=== PATIENT | male | born 1980 | race African-American/Black ===

== ENCOUNTER 2016-11-21 17:33 | Emergency (ER) | payer SELFPAY ==
[~2016-11-21] VITALS: Wt 159.0 kg
[2016-11-21] MEDS ORDERED: LORAZEPAM 2 MG INJ IM STA (18:02)
--- NOTE | 2016-11-21 18:19 | ERA ---
ER Documentation Chief Complaint Date/Time DATE: 11/21/16 TIME: 18:16 Chief Complaint ALOC HPI This is a 36-year-old male who does not know how he got here. The patient states that he feels very agitated and afraid. The patient tells me that he takes Wellbutrin and Geodon but he has not taken the Geodon in 2 days. He says he takes 80 mg twice daily. The patient states that he is seen a few black gentleman laying in the other side of the room facedown and they are and tells me not to wake them up. He says he is hearing voices as well. Says he is very agitated and is got to get off the Wellbutrin because he feels like it is messing him up. Does not have any physical complaints of pain. Patient says that he uses drugs in does a lot of heroin by snorting it. ROS All systems reviewed and are negative except as per history of present illness. Medications Home Meds Reported Medications Zolpidem Tartrate* (Zolpidem Tartrate*) 10 Mg Tablet, 10 MG PO QHS Y for INSOMNIA, #30 TAB 11/21/16 Ziprasidone* (Ziprasidone*) 80 Mg Capsule, 80 MG PO BID, CAP 11/21/16 Bupropion Hcl* (Wellbutrin XL*) 300 Mg Tab.sr.24h, 300 MG PO BID, TAB.SA 11/21/16 Allergies Allergies: Coded Allergies: No Known Allergy (Unverified , 11/21/16) FmHx Family History: No coronary disease Physical Exam Vitals Vital Signs Date Time Temp Pulse Resp B/P Pulse Ox O2 Delivery O2 Flow Rate FiO2 11/21/16 18:39 98.8 125 21 140/110 98 Physical Exam Const: Well-developed, well-nourished Head: Atraumatic, normocephalic Eyes: Normal Conjunctiva, PERRLA, EOMI, normal sclera, no nystagmus ENT: Normal External Ears, Nose and Mouth, moist mucus membranes. Neck: Full range of motion. No meningismus, no lymphadenopathy. Resp: Clear to auscultation bilaterally, no wheezing, rhonchi, rales Cardio: Regular rate and rhythm, no murmurs, S1 S2 present Abd: Soft, non tender x 4, non distended. Normal bowel sounds, no guarding or rebound, no pulsitile abdominal masses or bruits Skin: No petechiae or rashes, no ecchymosis , no maculopapular rash diaphoretic Back: No midline or flank tenderness Ext: No cyanosis, or edema, FROM x 4, normal inspection, neurovascularly intact x 4 Neur: Awake and alert, STR 5/5 x 4, sensation intact x 4, no focal findings, cerebellum intact Psych: Tangential speech, grandiosity's, auditory and visual hallucinations, denies suicidal or homicidal ideation, paranoia Result Diagram: 11/21/16180911/21/161809 Results 24 hrs Laboratory Tests Test 11/21/16 18:10 11/21/16 19:30 White Blood Count 16.110^3/ul Red Blood Count 5.5510^6/ul Hemoglobin 16.4g/dl Hematocrit 49.0% Mean Corpuscular Volume 88.3fl Mean Corpuscular Hemoglobin 29.5pg Mean Corpuscular Hemoglobin Concent 33.5g/dl Red Cell Distribution Width 14.6% Platelet Count 39473^3/UL Mean Platelet Volume 11.2fl Neutrophils % 70.2% Lymphocytes % 15.0% Monocytes % 13.8% Eosinophils % 0.0% Basophils % 0.5% Nucleated Red Blood Cells % 0.0/100WBC Neutrophils # 11.310^3/ul Lymphocytes # 2.410^3/ul Monocytes # 2.210^3/ul Eosinophils # 0.010^3/ul Basophils # 0.110^3/ul Nucleated Red Blood Cells # 0.010^3/ul Sodium Level 146mmol/L Potassium Level 4.6mmol/L Chloride Level 105mmol/L Carbon Dioxide Level 20mmol/L Anion Gap 26 Blood Urea Nitrogen 39mg/dl Creatinine 2.05mg/dl Glucose Level 129mg/dl Calcium Level 10.1mg/dl Total Bilirubin 0.6mg/dl Direct Bilirubin 0.00mg/dl Indirect Bilirubin 0.6mg/dl Aspartate Amino Transf (AST/SGOT) 86IU/L Alanine Aminotransferase (ALT/SGPT) 54IU/L Alkaline Phosphatase 76IU/L Total Protein 10.3g/dl Albumin 5.3g/dl Globulin 5.00g/dl Albumin/Globulin Ratio 1.06 Salicylates Level < 1.0mg/dl Acetaminophen Level < 10.0ug/ml Ethyl Alcohol Level < 10.0mg/dl Urine Opiates Screen Positive Urine Barbiturates Negative Urine Amphetamines Screen POSITIVE Urine Benzodiazepines Screen Positive Urine Cocaine Screen Negative Urine Cannabinoids Positive Current Medications Medications (Trade) Dose Ordered Sig/Mehdi Route PRN Reason Start Time Stop Time Status Last Admin Dose Admin Lorazepam (Ativan) 1 mg ONCE STAT IM 11/21/16 18:02 11/21/16 18:06 DC 11/21/16 18:30 Olanzapine 10 mg 10 mg ONCE ONCE IM 11/21/16 18:30 11/21/16 18:31 DC 11/21/16 18:30 Sodium Chloride 1,000 ml @ 1,000 mls/hr Q1H STAT IV 11/21/16 20:46 11/21/16 21:45 DC Sodium Chloride (NS) 1,000 ml @ 1,000 mls/hr Q1H STAT IV 11/21/16 20:47 11/21/16 21:46 DC Lorazepam (Ativan) 2 mg ONCE ONCE IM 11/21/16 21:00 11/21/16 21:01 DC 11/21/16 21:05 Procedures/MDM Patient is elevated white blood count likely due to stress demargination. Patient has CO2 of 20 with a creatinine of 2. I do not have any other old labs showing his baseline creatinine. We will give 2 L of fluid which should help the situation with his renal function. The patient was going to get an IV placed for fluids and he became a bit belligerent we had to give him some sedation. Once the patient wakes up we will have him evaluated by telemetry psychiatrist for likely transfer to inpatient facility for acute psychosis/psychotic break. Departure Diagnosis: Primary Impression: Psychosis Qualified Code: F29 - Psychosis, unspecified psychosis type Condition: Stable RADAMES LÓPEZ DO Nov 21, 2016 18:19
[2016-11-21 18:30] LABS: ABNORMAL IP MESSAGE 1; BASOPHIL # 0.1 10^3/ul (0.0-0.1); BASOPHILS % 0.5 % (0.0-2.0); HEMOGLOBIN 16.4 g/dl (14.0-18.0); LYMPHOCYTES # 2.4 10^3/ul (0.8-2.9); MEAN CORPUSCULAR HEMOGLOBIN 29.5 pg (29.0-33.0); MEAN CORPUSCULAR HGB CONC 33.5 g/dl (32.0-37.0); MEAN CORPUSCULAR VOLUME 88.3 fl (82.0-101.0); MEAN PLATELET VOLUME 11.2 fl (7.4-10.4); MONOCYTE # 2.2 10^3/ul (0.3-0.9); MONOCYTES % 13.8 % (0.0-11.0); NEUTROPHIL # 11.3 10^3/ul (1.6-7.5); NEUTROPHILS % 70.2 % (39.0-77.0); PLATELET COUNT 318 10^3/UL (140-415); POSITIVE DIFF @See below; RED BLOOD COUNT 5.55 10^6/ul (4.70-6.10); RED CELL DISTRIBUTION WIDTH 14.6 % (11.5-14.5); WHITE BLOOD COUNT 16.1 10^3/ul (4.8-10.8)
[2016-11-21] MEDS ORDERED: OLANZAPINE 10 MG VIAL IM ONE (18:30)
[2016-11-21 18:54] LABS: ALANINE AMINOTRANSFERASE 54 IU/L (13-69); ALBUMIN 5.3 g/dl (3.3-4.9); ALBUMIN/GLOBULIN RATIO 1.06; ALKALINE PHOSPHATASE 76 IU/L (42-121); ANION GAP 26 (8-16); ASPARTATE AMINO TRANSFERASE 86 IU/L (15-46); BILIRUBIN,INDIRECT 0.6 mg/dl (0-1.1); BILIRUBIN,TOTAL 0.6 mg/dl (0.2-1.3); BLOOD UREA NITROGEN 39 mg/dl (7-20); CALCIUM 10.1 mg/dl (8.4-10.2); CARBON DIOXIDE 20 mmol/L (21-31); CHLORIDE 105 mmol/L (97-110); CREATININE 2.05 mg/dl (0.61-1.24); GLUCOSE 129 mg/dl (70-220); POTASSIUM 4.6 mmol/L (3.5-5.1); SODIUM 146 mmol/L (135-144); TOTAL PROTEIN 10.3 g/dl (6.1-8.1)
[2016-11-21 19:03] LABS: ACETAMINOPHEN < 10.0 ug/ml (10.0-30.0); ETHANOL < 10.0 mg/dl; SALICYLATE < 1.0 mg/dl (5.0-30.0)
[2016-11-21] MEDS ORDERED: BUPR300T48 PO (19:58)
[2016-11-21] MEDS ORDERED: ZIPR80CA9 PO (19:59)
[2016-11-21] MEDS ORDERED: ZOLP10TA5 PO (20:00)
[2016-11-21 20:32] LABS: CANNABINOIDS Positive (NEGATIVE)
[2016-11-21 20:34] LABS: BARBITURATES Negative (NEGATIVE); BENZODIAZEPINES Positive (NEGATIVE); COCAINE Negative (NEGATIVE); OPIATES Positive (NEGATIVE)
[2016-11-21] MEDS: SOD CHLORIDE 0.9% 1,000 ML IV STA ×4 (20:46→21:06)
[2016-11-21] MEDS ORDERED: LORAZEPAM 2 MG INJ IM ONE (21:00)
[2016-11-22] MEDS ORDERED: HALOPERIDOL 5 MG INJ IM ONE ×2 (00:30→14:30)
[2016-11-22] MEDS ORDERED: LORAZEPAM 2 MG INJ IM ONE ×2 (00:30→14:30)
[2016-11-22 03:09] LABS: CALCIUM 8.1 mg/dl (8.4-10.2); CREATININE 1.4 mg/dl (0.61-1.24); POTASSIUM 3.8 mmol/L (3.5-5.1)
[2016-11-22] MEDS ORDERED: SOD CHLORIDE 0.9% 1,000 ML IV ONE ×2 (13:00)
--- NOTE | 2016-11-22 13:59 | EN ---
Date/Time of Note Date/Time of Note DATE: 11/22/16 TIME: 13:55 ER Progress Note Patient had been previously medically cleared for psychiatric evaluation and was awaiting transfer to psychiatric hospital. On my review of the patient's chart prior to certified transfer, I was concerned by the patient's positive drug screen with acute renal injury. I therefore checked a CK which was elevated at almost 5000. The patient will be given additional fluids and will have a repeat CK and BMP checked prior to transfer. On my evaluation, the patient is alert and oriented but easily agitated and uncooperative with answering questions. He has no signs of trauma on exam. He has stable vital signs. I do not believe there is acute medical condition other than rhabdomyolysis with acute kidney injury that requires further medical workup or hospitalization at this time. When he is cleared from a renal standpoint, including normalized electrolytes and downtrending CK, he can be transferred to psychiatric hospital. CARRIE HAN MD Nov 22, 2016 13:59
[2016-11-22] MEDS ORDERED: HALOPERIDOL 5 MG INJ ONE (14:04)
[2016-11-22] MEDS ORDERED: LORAZEPAM 2 MG INJ ONE (14:04)
[2016-11-22] MEDS ORDERED: DIPHENHYDRAMINE 50 MG INJ ONE (14:04)
[2016-11-22] MEDS ORDERED: DIPHENHYDRAMINE 50 MG INJ IM ONE (14:30)
[2016-11-22 16:24] LABS: CALCIUM 8.4 mg/dl (8.4-10.2); CREATININE 1.05 mg/dl (0.61-1.24)
[2016-11-22 20:42] VITALS: BP 121/73; PULSE 83; RESP 16; TEMP 98.4
== END 2016-11-22 20:48 ==
LOC: E/R 17:33
DX: F29 Unspecified psychosis not due to a substance or known physiological condition (principal)
CPT/HCPCS: 80048; 80053; 80306; 80307; 82550; 85025; J1200; J1630; J2060; J7030; 36415; 96372